=== PATIENT | female | born 1960 | race Hispanic/Latino ===

== ENCOUNTER 2020-12-14 10:26 | Emergency (ER) | payer OTHER, SELFPAY ==
[~2020-12-14] VITALS: Ht 152.4 cm; Wt 59.0 kg
[2020-12-14 10:27] VITALS: BP 157/81
[2020-12-14 11:25] LABS: BASOPHILS % (AUTO) 0.3 % (0.0-5.0); EOSINOPHILS % (AUTO) 3.1 % (0.0-8.0); HEMATOCRIT 32.7 % (36-48); LYMPHOCYTES % (AUTO) 24.8 % (21.0-51.0); MEAN CORPUSCULAR HEMOGLOBIN 28.5 pg (27.0-33.0); MEAN CORPUSCULAR HGB CONC 31.2 g/dL (32.0-36.0); MEAN CORPUSCULAR VOLUME 91.3 fL (79-99); MONOCYTES % (AUTO) 5.7 % (3.0-13.0); NEUTROPHILS % (AUTO) 65.7 % (40.0-77.0); PLATELET COUNT (AUTO) 455 K/uL (130-400); RED BLOOD CELL COUNT(AUTO) 3.58 MIL/uL (4.00-5.50); WHITE BLOOD COUNT (AUTO) 7.7 K/uL (4.8-10.8)
[2020-12-14 11:34] LABS: CREATININE 0.9 mg/dL (0.5-1.5); POTASSIUM 4.2 mmol/L (3.5-5.1)
[2020-12-14 11:42] LABS: B-TYPE NATRIURETIC PEPTIDE 80 pg/mL (0-100)
[2020-12-14 11:44] LABS: ALBUMIN 2.7 g/dL (3.5-5.0); BILIRUBIN,TOTAL 0.3 mg/dL (0.2-1.0); TOTAL PROTEIN, SERUM 7.7 g/dL (6.0-8.3)
[2020-12-14] MEDS ORDERED: SOLU-MEDROL 125MG VIAL IVP ONE (14:00)
[2020-12-14] MEDS ORDERED: PRED20TA3 PO (14:30)
[2020-12-14] MEDS ORDERED: KETOROLAC 30MG VIAL (30MG/ML) ONE (14:45)
== END 2020-12-14 16:05 | disposition home or self-care (01) ==
LOC: EDH 10:26
DX: R22.33 Localized swelling, mass and lump, upper limb, bilateral (principal); R22.43 Localized swelling, mass and lump, lower limb, bilateral; E78.00 Pure hypercholesterolemia, unspecified; I10 Essential (primary) hypertension; M19.90 Unspecified osteoarthritis, unspecified site
CPT/HCPCS: 36415; 71045; 80053; 82550; 83880; 84443; 84484; 85025; 93005; 96374; 96375; 99285; J1885; J2930

== ENCOUNTER 2023-09-19 15:22 | Emergency (ER) | payer OTHER, SELFPAY ==
[~2023-09-19] VITALS: Ht 152.4 cm; Wt 55.3 kg
[~2023-09-19 15:22] MED LIST: PRED20TA3 PO
[2023-09-19 15:40] VITALS: BP 125/67; PULSE 75; RESP 16
[2023-09-19 17:42] LABS: BASOPHILS # (AUTO) 0.03 K/uL (0.00-0.20); BASOPHILS % (AUTO) 0.4 % (0.0-5.0); EOSINOPHILS # (AUTO) 0.41 K/uL (0.00-0.70); HEMATOCRIT 33.5 % (36-48); IMMATURE GRANULOCYTE ABSOLUTE 0.02 K/uL (0-1); LYMPHOCYTES # (AUTO) 2.6 K/uL (1.0-4.8); LYMPHOCYTES % (AUTO) 31.8 % (21.0-51.0); MEAN CORPUSCULAR HEMOGLOBIN 29.4 pg (27.0-33.0); MEAN CORPUSCULAR HGB CONC 31.9 g/dL (32.0-36.0); MONOCYTES # (AUTO) 0.6 K/uL (0.1-1.0); NEUTROPHILS # (AUTO) 4.6 K/uL (1.8-7.7); NEUTROPHILS % (AUTO) 55.6 % (40.0-77.0); PLATELET COUNT (AUTO) 382 K/uL (130-400); RED BLOOD CELL COUNT(AUTO) 3.64 MIL/uL (4.00-5.50); RED CELL DISTRIBUTION WIDTH 13.2 % (11.0-15.5); WHITE BLOOD COUNT (AUTO) 8.3 K/uL (4.8-10.8)
[2023-09-19 17:54] LABS: CREATININE 0.9 mg/dL (0.5-1.0); POTASSIUM 4.3 mmol/L (3.5-5.1)
[2023-09-19] MEDS ORDERED: NAPR-1192 PO (18:15)
[2023-09-19] MEDS ORDERED: CYCL7.5T27 PO (18:15)
[2023-09-19] MEDS: ORPHENADRINE CITRATE 30 MG/ML ML IM STA (18:25)
[2023-09-19] MEDS: KETOROLAC 60 MG VIAL (30MG/ML) IM ONE (18:26)
== END 2023-09-19 18:50 | disposition home or self-care (01) ==
LOC: EDH 15:22
DX: G89.29 Other chronic pain (principal); M25.561 Pain in right knee; I10 Essential (primary) hypertension; E78.00 Pure hypercholesterolemia, unspecified; M19.90 Unspecified osteoarthritis, unspecified site; Z79.899 Other long term (current) drug therapy; Z98.890 Other specified postprocedural states
CPT/HCPCS: 99285; 93971; 80048; 85025; 36415; 73562; 96372 ×2; J1885; J2360

== ENCOUNTER 2024-06-07 12:57 | Emergency (ER) | payer BC, SELFPAY ==
[~2024-06-07] VITALS: Ht 152.4 cm; Wt 56.7 kg
[~2024-06-07 12:57] MED LIST changes: +CYCL7.5T27 PO; +NAPR-1192 PO
--- NOTE | 2024-06-07 13:07 | ERN ---
General Chief Complaint: Generalized Body Aches Stated Complaint: BODY ACHES History of Present Illness Initial Comments 63-year-old female, history of arthritis, reports flare-up of arthritis type pain. She reports that she has been dealing with arthritis and most of her joints on and off for the last few years. She occasionally takes pain medicine and steroids. She reports over the last few days her bilateral hands and bilateral knees have been bothering her. She denies any other systemic signs or symptoms such as fevers, vomiting, diarrhea, GI symptoms or other. She has tried [id number] Tylenol with minimal relief. There is some minimal swelling to her bilateral knees and hands, no erythema redness, neurovascularly intact. Ambulatory. Allergies: Coded Allergies: No Known Allergies (Unverified Allergy, Unknown, 12/14/20) Home Meds Active Scripts Cyclobenzaprine HCl (Cyclobenzaprine HCl) 7.5 Mg Tablet, 7.5 MG PO nightly for 7 Days, #7 TAB Prov:AMY HAWKINS MD 09/19/23 Naproxen (Naproxen) 375 Mg Tablet, 375 MG PO BID for 7 Days, #14 TAB Prov:AMY HAWKINS MD 09/19/23 Prednisone (Prednisone) 20 Mg Tablet, 1 TAB PO AD for 3 Days, #3 TAB 0 Refills Prov:MEREDITH BROWER MD 12/14/20 Past Medical History Past Medical History: Arthritis, High Cholesterol, Hypertension Past Surgical History: Family History Family History: Negative Social History Social History: ETOH, Negative Female( History) History: Not Applicable ROS Dictation CONSTITUTIONAL: No chills, no fever, no weakness, no diaphoresis, no malaise. HEAD/FACE: No signs of trauma. EENT: No eye pain, no blurred vision, no tearing, no double vision, no ear pain , no ear discharge, no nose pain, no nasal congestion, no throat pain, no throat swelling, no mouth pain. RESPIRATORY: No cough, no orthopnea, no SOB, no stridor, no wheezing. CARDIOVASCULAR: No chest pain, no edema, no palpitations, no syncope. GASTROINTESTINAL/ABDOMINAL: No abdominal pain, no constipation, no diarrhea, no nausea, no vomiting. GENITOURINARY: No abnormal discharge, no dysuria, no frequent urination, no hematuria. No complaints of pain in the genitals. MUSCULOSKELETAL: Bilateral knee and hand pain. INTEGUMENTARY: No change in color, no change in hair/nails, no dryness, no lesion, no lumps, no rash. NEUROLOGICAL/PSYCH: No anxiety, not depressed, no emotional problem, no headache, no numbness, no pre-existing deficit, no history of seizures, no tremors, no weakness. HEMATOLOGIC/LYMPHATIC: Not anemic, no history of blood clots, no apparent bleeding, no bruising, glands not swollen. All Systems Negative, Except as Noted. Physical Exam Physical Exam Dictation VITAL SIGNS: Reviewed. GENERAL APPEARANCE: Alert, oriented x3, no acute distress HEAD AND FACE: Non-traumatic. EYES: PERRL, pink conjunctivas, eyelid no trauma, anterior chamber clear. EARS: Pinnas intact and no signs of trauma or erythema. Ear canals clear and no discharge. TMs no erythema. NOSE: No discharge, no bleeding. OROPHARYNX: Mouth normal, teeth no caries, tongue pink. Pharynx clear, no erythema. Tonsils no exudates, no abscesses noted. Mucous membrane moist. NECK: Supple, non-tender, no thyromegaly, no masses, no JVD, no bruits. BREAST: Deferred. CHEST: No tenderness, no crepitus, no paradoxical movement, no retractions. LUNGS: Clear, well-ventilated, symmetric, no rales, no wheezing, no rhonchi, no stridor, good breath sounds bilaterally. HEART: Regular rate, regular rhythm, no murmur, no gallops. VASCULAR: No peripheral edema. ABDOMEN: Soft, positive bowel sounds, nondistended, no guarding, nontender, no rebound, no masses no hepatomegaly, no splenomegaly, no Ortiz's sign, no hernias. RECTAL: Deferred. GENITAL: Deferred. NEUROLOGICAL: Normal speech, gross motor function intact, gross sensory function intact. MUSCULOSKELETAL: Neck nontender, full range of motion, back nontender, full range of motion. Bilateral knee swelling. EXTREMITIES: Nontender, full range of motion. SKIN: Color pink, dry, no turgor, no rash, no lacerations, no abrasions, no contusions. LYMPHATICS: Deferred. MDM CC: Hand and knee pain likely arthritis Historian: Patient Comorbidities: Arthritis Limitations by social determinants of health: Uninsured Differential diagnosis: Arthritis flare-up Vital signs are stable Clinical exam shows some mild swelling in bilateral knees and hands. Very low suspicion for DVT, vascular compromise, or systemic illness. Bilateral knee x-ray (independently interpreted by me ): No bony abnormalities or major fractures. Patient received IM color at all and Solu-Medrol in the ER. We will DC with NSAID (meloxicam) and a short course of prednisone. We will recommend PCP follow up. Patient agrees with the plan. ED Course Orders Procedure Category Date Status Time Knee 3vws Lt RAD 06/07/24 Taken 13:04 Knee 3vws Rt RAD 06/07/24 Logged 13:04 Ketorolac PHA 06/07/24 Complete Tromethamine 15mg/Ml 13:30 Methylprednisolone PHA 06/07/24 Complete Succ 40mg (Solu-Medro 13:30 Current Medications Medications (Trade) Dose Ordered Sig/Lexus Route PRN Reason Start Time Stop Time Status Last Admin Dose Admin Ketorolac Tromethamine (toRADol) 15 mg ONCE ONCE IM 06/07/24 13:30 06/07/24 13:31 DC Methylprednisolone Sodium Succinate (Solu-medROL 40MG) 40 mg ONCE ONCE IM 06/07/24 13:30 06/07/24 13:31 DC Vital Signs Date Time Temp Pulse Resp B/P (MAP) Pulse Ox O2 Delivery O2 Flow Rate FiO2 06/07/24 13:01 98.2 82 18 108/60 99 Room Air DX & DISP Disposition: Discharge Departure Impression: Primary Impression: Arthritis of knee Condition: Stable Scripts Prednisone (Prednisone) 20 Mg Tablet 1 TAB PO BID for 5 Days, #10 TAB 0 Refills Prov: GERALD LEONE DO 06/07/24 Meloxicam (Meloxicam) 15 Mg Tablet 15 MG PO DAILY PRN for PAIN for 10 Days, #10 TAB Prov: GERALD LEONE DO 06/07/24 Additional Instructions: Your symptoms are consistent with arthritis. The bilateral knee x-rays do not show any bony abnormalities. You received intramuscular Toradol and Solu-Medrol here in the ER. I have prescribed meloxicam, which is an anti-inflammatory pain medicine. Take this once per day for the next week or so. I have also prescribed prednisone which is an anti-inflammatory steroid. Take this twice per day as prescribed. I recommend you also take 1000 mg of Tylenol 4 times a day (two extra-strength tabs at a time). This medication is [id number]. You can use ice to your knees as needed. Use an Jevon wrap as needed. Please follow up with the primary doctor for re-evaluation. Referrals: BRENDA BANSAL MD (PCP) GERALD LEONE DO Jun 07, 2024 13:07
[2024-06-07] MEDS ORDERED: PRED20TA3 PO (13:34)
[2024-06-07] MEDS ORDERED: MELO-108 PO (13:34)
[2024-06-07] MEDS: Solu-medROL 40MG VIAL IM ONE (13:38)
[2024-06-07] MEDS: ketOROlac 15MG/ML VIAL (15MG/ML) IM ONE (13:39)
[2024-06-07 13:47] VITALS: BP 108/60; PULSE 80; RESP 16; TEMP 98.3; O2SAT 98
--- NOTE | 2024-06-07 13:51 | HMCIMG ---
KNEE 3VWS RT HISTORY: Pain COMPARISON: None TECHNIQUE: 3 images of left knee were obtained. FINDINGS: There is no acute displaced fracture or dislocation. Degenerative changes are seen. IMPRESSION: 1. Findings as described above.
--- NOTE | 2024-06-07 13:51 | HMCIMG ---
KNEE 3VWS LT HISTORY: Pain COMPARISON: None TECHNIQUE: 3 images of left knee were obtained. FINDINGS: There is no acute displaced fracture or dislocation. Degenerative changes are seen. IMPRESSION: 1. Findings as described above.
== END 2024-06-07 14:00 | disposition home or self-care (01) ==
LOC: EDH 12:57
DX: M17.0 Bilateral primary osteoarthritis of knee (principal); E78.00 Pure hypercholesterolemia, unspecified; I10 Essential (primary) hypertension; Z79.899 Other long term (current) drug therapy; Z98.890 Other specified postprocedural states
CPT/HCPCS: 99284; 73562 ×2; 96372 ×2; J1885; J2919

== ENCOUNTER 2024-08-26 11:43 | Emergency (ER) | payer BC, OTHER ==
[~2024-08-26] VITALS: Ht 152.4 cm; Wt 55.3 kg
[~2024-08-26 11:43] MED LIST changes: +MELO-108 PO; +OMEP40CA21 PO
[2024-08-26 12:11] LABS: BASOPHILS # (AUTO) 0.03 K/uL (0.00-0.20); BASOPHILS % (AUTO) 0.3 % (0.0-5.0); EOSINOPHILS # (AUTO) 0.21 K/uL (0.00-0.70); EOSINOPHILS % (AUTO) 1.8 % (0.0-8.0); HEMATOCRIT 30.2 % (36-48); IMMATURE GRANULOCYTE ABSOLUTE 0.03 K/uL (0-1); LYMPHOCYTES # (AUTO) 2.9 K/uL (1.0-4.8); LYMPHOCYTES % (AUTO) 24.3 % (21.0-51.0); MEAN CORPUSCULAR HEMOGLOBIN 26.1 pg (27.0-33.0); MEAN CORPUSCULAR HGB CONC 30.8 g/dL (32.0-36.0); MEAN CORPUSCULAR VOLUME 84.6 fL (79-99); MONOCYTES # (AUTO) 0.7 K/uL (0.1-1.0); MONOCYTES % (AUTO) 5.6 % (3.0-13.0); NEUTROPHILS # (AUTO) 8.1 K/uL (1.8-7.7); NEUTROPHILS % (AUTO) 67.7 % (40.0-77.0); PLATELET COUNT (AUTO) 519 K/uL (130-400); RED BLOOD CELL COUNT(AUTO) 3.57 MIL/uL (4.00-5.50); RED CELL DISTRIBUTION WIDTH 14.1 % (11.0-15.5)
[2024-08-26 12:18] LABS: POTASSIUM 4.7 mmol/L (3.5-5.1)
[2024-08-26 12:26] LABS: MAGNESIUM 1.9 mg/dL (1.80-2.40)
--- NOTE | 2024-08-26 12:30 | EKG ---
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
--- NOTE | 2024-08-26 12:56 | ERN ---
General Chief Complaint: LOWER EXTREMITY EDEMA Stated Complaint: UPPER AND LOWER EXTREMITY SWELLING Time Seen by MD: 11:51 History of Present Illness Initial Comments 64-year-old female who presents for lower leg swelling bilateral hand swelling. Patient has a history of rheumatoid arthritis. She gets occasional flare-ups in her hands shoulders and upper joints. She also occasionally swells in her legs. She reports that she has had increased swelling in her lower legs bilaterally for the last two months. Has been increasing in severity. She reports that it feels like it is so bad now that she is having a hard time walk and it is uncomfortable. She denies any chest pain or shortness of breath. Denies any PND. Denies any chest palpitations. She reports that her liver and kidney functions are normal. Allergies: Coded Allergies: No Known Allergies (Unverified Allergy, Unknown, 12/14/20) Home Meds Active Scripts Furosemide (Lasix 20Mg Tab) 20 Mg Tablet, 1 TAB PO DAILY for 30 Days, #30 TAB 0 Refills Prov:GERALD LEONE DO 08/26/24 Meloxicam (Meloxicam) 15 Mg Tablet, 15 MG PO DAILY PRN for PAIN for 30 Days, #30 TAB Prov:GERALD LEONE DO 08/26/24 Prednisone (Prednisone) 20 Mg Tablet, 1 TAB PO AD for 6 Days, #14 TAB 0 Refills TAKE 1 TAB BY MOUTH THREE TIMES PER DAY X3 DAYS, THEN TAKE 1 TAB BY MOUTH TWICE A DAY X2 DAYS, THEN TAKE 1 TAB BY MOUTH ONCE A DAY X1 DAY. Prov:NURY CADENA NP 07/16/24 Omeprazole (Omeprazole) 40 Mg Capsule.dr, 1 CAP PO DAILY for 30 Days, #30 CAP 0 Refills Prov:NURY CADENA NP 07/16/24 Prednisone (Prednisone) 20 Mg Tablet, 1 TAB PO BID for 5 Days, #10 TAB 0 Refills Prov:GERALD LEONE DO 06/07/24 Meloxicam (Meloxicam) 15 Mg Tablet, 15 MG PO DAILY PRN for PAIN for 10 Days, #10 TAB Prov:GERADL LEONE DO 06/07/24 Cyclobenzaprine HCl (Cyclobenzaprine HCl) 7.5 Mg Tablet, 7.5 MG PO nightly for 7 Days, #7 TAB Prov:AMY HAWKINS MD 09/19/23 Naproxen (Naproxen) 375 Mg Tablet, 375 MG PO BID for 7 Days, #14 TAB Prov:AMY HAWKINS MD 09/19/23 Prednisone (Prednisone) 20 Mg Tablet, 1 TAB PO AD for 3 Days, #3 TAB 0 Refills Prov:MEREDITH BROWER MD 12/14/20 Past Medical History Past Medical History: Anemia, Arthritis, High Cholesterol, Hypertension Past Surgical History: Family History Family History: Negative Social History Social History: ETOH, Negative Female( History) History: Not Applicable ROS Dictation CONSTITUTIONAL: No chills, no fever, no weakness, no diaphoresis, no malaise. HEAD/FACE: No signs of trauma. EENT: No eye pain, no blurred vision, no tearing, no double vision, no ear pain, no ear discharge, no nose pain, no nasal congestion, no throat pain, no throat swelling, no mouth pain. RESPIRATORY: No cough, no orthopnea, no SOB, no stridor, no wheezing. CARDIOVASCULAR: No chest pain, no edema, no palpitations, no syncope. GASTROINTESTINAL/ABDOMINAL: No abdominal pain, no constipation, no diarrhea, no nausea, no vomiting. GENITOURINARY: No abnormal discharge, no dysuria, no frequent urination, no hematuria. No complaints of pain in the genitals. MUSCULOSKELETAL: Bilateral extremity swelling INTEGUMENTARY: No change in color, no change in hair/nails, no dryness, no les ion, no lumps, no rash. NEUROLOGICAL/PSYCH: No anxiety, not depressed, no emotional problem, no headache, no numbness, no pre-existing deficit, no history of seizures, no tremors, no weakness. HEMATOLOGIC/LYMPHATIC: Not anemic, no history of blood clots, no apparent bleeding, no bruising, glands not swollen. All Systems Negative, Except as Noted. Physical Exam Physical Exam Dictation VITAL SIGNS: Reviewed. GENERAL APPEARANCE: Alert, oriented x3, no acute distress, obese. HEAD AND FACE: Non-traumatic. EYES: PERRL, pink conjunctivas, eyelid no trauma, anterior chamber clear. EARS: Pinnas intact and no signs of trauma or erythema. Ear canals clear and no discharge. TMs no erythema. NOSE: No discharge, no bleeding. OROPHARYNX: Mouth normal, teeth no caries, tongue pink. Pharynx clear, no erythema. Tonsils no exudates, no abscesses noted. Mucous membrane moist. NECK: Supple, non-tender, no thyromegaly, no masses, no JVD, no bruits. BREAST: Deferred. CHEST: No tenderness, no crepitus, no paradoxical movement, no retractions. LUNGS: Clear, well-ventilated, symmetric, no rales, no wheezing, no rhonchi, no stridor, good breath sounds bilaterally. HEART: Regular rate, regular rhythm, no murmur, no gallops. VASCULAR: No peripheral edema. ABDOMEN: Soft, positive bowel sounds, nondistended, no guarding, nontender, no rebound, no masses no hepatomegaly, no splenomegaly, no Ortiz's sign, no hernias. RECTAL: Deferred. GENITAL: Deferred. NEUROLOGICAL: Normal speech, gross motor function intact, gross sensory function intact. MUSCULOSKELETAL: Bilateral lower leg 2+ pitting edema. Lung sounds are clear. EXTREMITIES: Nontender, full range of motion. SKIN: Color pink, dry, no turgor, no rash, no lacerations, no abrasions, no contusions. LYMPHATICS: Deferred. Results Laboratory and Microbiology Lab and Micro Result Laboratory Tests Test 08/26/24 12:03 08/26/24 12:58 White Blood Count 12.0 K/uL (4.8-10.8) H Red Blood Count 3.57 MIL/uL (4.00-5.50) L Hemoglobin 9.3 g/dL (12.0-16.0) L Hematocrit 30.2 % (36-48) L Mean Corpuscular Volume 84.6 fL (79-99) Mean Corpuscular Hemoglobin 26.1 pg (27.0-33.0) L Mean Corpuscular Hemoglobin Concent 30.8 g/dL (32.0-36.0) L Red Cell Distribution Width 14.1 % (11.0-15.5) Platelet Count 519 K/uL (130-400) H Mean Platelet Volume 9.4 fL (7.5-10.5) Immature Granulocyte % (Auto) 0.3 % (0-1) Neutrophils (%) (Auto) 67.7 % (40.0-77.0) Lymphocytes (%) (Auto) 24.3 % (21.0-51.0) Monocytes (%) (Auto) 5.6 % (3.0-13.0) Eosinophils (%) (Auto) 1.8 % (0.0-8.0) Basophils (%) (Auto) 0.3 % (0.0-5.0) Neutrophils # (Auto) 8.1 K/uL (1.8-7.7) H Lymphocytes # (Auto) 2.9 K/uL (1.0-4.8) Monocytes # (Auto) 0.7 K/uL (0.1-1.0) Eosinophils # (Auto) 0.21 K/uL (0.00-0.70) Basophils # (Auto) 0.03 K/uL (0.00-0.20) Absolute Immature Granulocyte (auto 0.03 K/uL (0-1) Nucleated Red Blood Cells 0.0 % (0.0-0.19) Red Blood Cell Morphology See comments Sodium Level 142 mmol/L (136-145) Potassium Level 4.7 mmol/L (3.5-5.1) Chloride Level 106 mmol/L (101-111) Carbon Dioxide Level 27 mmol/L (21-32) Blood Urea Nitrogen 21 mg/dL (7-18) H Creatinine 1.0 mg/dL (0.5-1.0) Glomerular Filtration Rate Calc 64 mL/min (>90) Random Glucose 97 mg/dL (70-105) Total Calcium 9.1 mg/dL (8.5-10.1) Magnesium Level 1.90 mg/dL (1.80-2.40) Total Creatine Kinase 56 U/L (21-232) # Troponin I High Sensitivity 4.2 ng/L (4-50) B-Type Natriuretic Peptide 64 pg/mL (0-100) Urine Color YELLOW (YELLOW) Urine Appearance CLEAR (CLEAR) Urine pH 5.0 (5.0-8.0) Urine Specific Taft 1.036 (1.001-1.031) Urine Protein 30 mg/dL (NEGATIVE) H Urine Glucose (UA) NEGATIVE mg/dL (NEGATIVE) Urine Ketones 5 mg/dL (NEGATIVE) H Urine Occult Blood NEGATIVE (NEGATIVE) Urine Nitrate NEGATIVE (NEGATIVE) Urine Bilirubin MODERATE mg/dL (NEGATIVE) H Urine Urobilinogen 1.0 mg/dL (0.2-1.0) Urine Leukocyte Esterase NEGATIVE Joo/uL Urine RBC 0-1 /HPF (0-1) Urine WBC 2-5 /HPF (0-1) H Urine Squamous Epithelial Cells 2-5 /HPF (0-2) Urine Bacteria Moderate /HPF (None Seen) H MDM CC: Pedal edema and swelling hand swelling Historian: Patient Comorbidities: Rheumatoid arthritis Limitations by social determinants of health: None Differential diagnosis: Pedal edema, CHF, kidney disease, lung disease, rhe umatoid arthritis, other. Vital signs: Stable, remained stable here in the ER EKG: Sinus rhythm, rate 73, normal axis, good R-wave progression, intervals are stable no STEMI. Independently interpreted by me CXR (independently ordered and interpreted by me): No cardiomegaly focal infiltrates or pleural effusions. Labs show leukocytosis 12 K, no shift, normocytic anemia hemoglobin 9.3. Chemistry panel is unremarkable. Troponin is normal. Urinalysis shows 30 protein high specific gravity otherwise unremarkable. Treatment in ED: toradol Symptoms most consistent with a edema, there is no signs of heart failure, no signs of kidney disease or liver disease. It may also be related to her rheumatoid arthritis. For the rheumatoid I will treat her with some meloxicam prescription. She does report she is working on getting outpatient follow up but currently does not have a primary care doctor. We will give her some Lasix to start, but I did highly recommend she return to the emergency department or follows up with the primary doctor to ensure that she her kidney function is stable her electrolytes are stable and that her swelling improves. ED Course Orders Procedure Category Date Status Time Cardiac Panel LAB 08/26/24 Complete 11:53 Cbc With Differential LAB 08/26/24 Complete 11:53 Basic Metabolic Panel LAB 08/26/24 Complete 11:53 B-Type Natriuretic LAB 08/26/24 Complete Peptide 11:53 Magnesium LAB 08/26/24 Complete 11:53 Urinalysis Profile LAB 08/26/24 Complete 11:53 12 Lead Ekg Tracing- EKG 08/26/24 Complete Technical 11:53 Chest 1vw RAD 08/26/24 Resulted 11:53 Ketorolac PHA 08/26/24 Complete Tromethamine 15mg/Ml 13:00 Culture Urine RONNY 08/26/24 In Process 13:41 Current Medications Medications (Trade) Dose Ordered Sig/Lexus Route PRN Reason Start Time Stop Time Status Last Admin Dose Admin Ketorolac Tromethamine (toRADol) 15 mg ONCE ONCE IV 08/26/24 13:00 08/26/24 13:01 DC 08/26/24 13:05 Vital Signs Date Time Temp Pulse Resp B/P (MAP) Pulse Ox O2 Delivery O2 Flow Rate FiO2 08/26/24 15:56 98.1 61 18 134/61 97 Room Air* 0 21 08/26/24 13:58 62 18 131/57 100 Room Air* 0 21 08/26/24 12:04 98.4 72 18 123/57 100 Room Air* 0 21 08/26/24 11:46 98.6 67 20 135/62 98 Room Air DX & DISP Disposition: Discharge Departure Impression: Primary Impression: Flare of rheumatoid arthritis Additional Impression: Pedal edema Condition: Stable Scripts Furosemide (Lasix 20Mg Tab) 20 Mg Tablet 1 TAB PO DAILY for 30 Days, #30 TAB 0 Refills Prov: GERALD LEONE DO 08/26/24 Meloxicam (Meloxicam) 15 Mg Tablet 15 MG PO DAILY PRN for PAIN for 30 Days, #30 TAB Prov: GERALD LEONE DO 08/26/24 Additional Instructions: Your symptoms are consistent with a rheumatoid arthritis flare-up with pulmonary edema, or leg swelling. Your lab work (heart function, kidney function, liver function) is unremarkable. I have prescribed Lasix, which is a diuretic. You can take this once or twice per day. This will increase your urination. You can do this to help remove fluid off your body and reduce the swelling. I do not recommend that you take this for long-term without follow up with the primary doctor. I have prescribed meloxicam, which is a nonsteroidal anti-inflammatory medicine that may help with your rheumatoid arthritis. Take as prescribed. Please follow up with the primary doctor. Referrals: VIKTOR HANKS MD (PCP) GERALD LEONE DO August 26, 2024 12:56
[2024-08-26] MEDS: ketOROlac 15MG/ML VIAL (15MG/ML) IV ONE (13:05)
[2024-08-26 13:08] LABS: APPEARANCE,URINE CLEAR (CLEAR); BILIRUBIN,URINE MODERATE mg/dL (NEGATIVE); COLOR,URINE YELLOW (YELLOW); GLUCOSE, URINE (UA) NEGATIVE (NEGATIVE); KETONES,URINE 5 mg/dL (NEGATIVE); LEUKOCYTE ESTERASE ,URINE NEGATIVE Leu/uL (NEGATIVE); NITRATE,URINE NEGATIVE (NEGATIVE); OCCULT BLOOD,URINE NEGATIVE (NEGATIVE); PROTEIN,URINE 30 mg/dL (NEGATIVE)
[2024-08-26 13:12] LABS: ADD UA MICROSCOPIC YES
--- NOTE | 2024-08-26 13:25 | HMCIMG ---
PORTABLE CHEST RADIOGRAPH INDICATION: chest pain COMPARISON: 12/14/2020 FINDINGS: Heart size is normal. The pulmonary vascularity and madhavi appear normal. No abnormal pulmonary parenchymal opacity or consolidation identified. No significant pleural effusion noted. No pneumothorax detected. IMPRESSION: No radiographic evidence for any acute cardiopulmonary process.
[2024-08-26 13:40] LABS: BACTERIA,URINE Moderate /HPF (None Seen)
[2024-08-26 13:41] LABS: RBC,URINE 0-1 /HPF (0-1)
[2024-08-26 14:37] LABS: B-TYPE NATRIURETIC PEPTIDE 64 pg/mL (0-100)
[2024-08-26] MEDS ORDERED: FURO20TA6 PO (14:45)
[2024-08-26 15:56] VITALS: BP 134/61; PULSE 61; RESP 18; TEMP 98.1; O2SAT 97
== END 2024-08-26 16:11 | disposition home or self-care (01) ==
LOC: EDH 11:43
DX: M06.9 Rheumatoid arthritis, unspecified (principal); R60.0 Localized edema; E78.00 Pure hypercholesterolemia, unspecified; I10 Essential (primary) hypertension; Z79.52 Long term (current) use of systemic steroids; Z79.899 Other long term (current) drug therapy
CPT/HCPCS: 99285; 96374; 71045; 82550; 83735; 84484; 80048; 83880; 85025; 87086; 81001; 36415; 93005; J1885

== ENCOUNTER 2024-09-24 11:47 | Emergency (ER) | payer OTHER ==
[~2024-09-24] VITALS: Ht 152.4 cm; Wt 54.4 kg
[~2024-09-24 11:47] MED LIST changes: +FURO20TA6 PO
--- NOTE | 2024-09-24 11:56 | ERN ---
ED Note History of Present Illness Stated Complaint: PAIN IN ALL BODY,SWOLLEN LEGS Chief Complaint: Lower Extremity Pain/Injury Time Seen by MD: 11:49 Dictation: PATIENT IS A 64-YEAR-OLD FEMALE COMING IN TODAY WITH COMPLAINTS OF SWELLING TO HER BILATERAL LOWER EXTREMITIES ONSET SHE HAS HAD FOR SEVERAL WEEKS. SHE HAS NO SOB NO CHEST PAIN NO BACK PAIN. DENIES ANY HISTORY OF CHF. SHE WAS SEEN HERE I August FOR THE SAME COMPLAINT AND WAS DIAGNOSED WITH A RHEUMATOID ARTHRITIS FLARE AND PEDAL EDEMA. STATES SHE SAW HER PRIMARY CARE DOCTOR WHO REFERRED HER TO A SPECIALIST FOR HER ARTHRITIS, SHE DOES NOT RECALL WHAT HE TOLD HER BUT HE GAVE HER SOME PILLS TO TAKE BUT Allergies: Coded Allergies: No Known Allergies (Unverified Allergy, Unknown, 12/14/20) Home Meds Active Scripts Furosemide (Lasix 20Mg Tab) 20 Mg Tablet, 1 TAB PO DAILY for 30 Days, #30 TAB 0 Refills Prov:GEARLD LEONE DO 08/26/24 Meloxicam (Meloxicam) 15 Mg Tablet, 15 MG PO DAILY PRN for PAIN for 30 Days, #30 TAB Prov:GERALD LEONE DO 08/26/24 Prednisone (Prednisone) 20 Mg Tablet, 1 TAB PO AD for 6 Days, #14 TAB 0 Refills TAKE 1 TAB BY MOUTH THREE TIMES PER DAY X3 DAYS, THEN TAKE 1 TAB BY MOUTH TWICE A DAY X2 DAYS, THEN TAKE 1 TAB BY MOUTH ONCE A DAY X1 DAY. Prov:NURY CADENA NP 07/16/24 Omeprazole (Omeprazole) 40 Mg Capsule.dr, 1 CAP PO DAILY for 30 Days, #30 CAP 0 Refills Prov:NURY CADENA NP 07/16/24 Prednisone (Prednisone) 20 Mg Tablet, 1 TAB PO BID for 5 Days, #10 TAB 0 Refills Prov:GERALD LEONE DO 06/07/24 Meloxicam (Meloxicam) 15 Mg Tablet, 15 MG PO DAILY PRN for PAIN for 10 Days, #10 TAB Prov:GERALD LEONE DO 06/07/24 Cyclobenzaprine HCl (Cyclobenzaprine HCl) 7.5 Mg Tablet, 7.5 MG PO nightly for 7 Days, #7 TAB Prov:AMY HAWKINS MD 09/19/23 Naproxen (Naproxen) 375 Mg Tablet, 375 MG PO BID for 7 Days, #14 TAB Prov:AMY HAWKINS MD 09/19/23 Prednisone (Prednisone) 20 Mg Tablet, 1 TAB PO AD for 3 Days, #3 TAB 0 Refills Prov:MEREDITH BROWER MD 12/14/20 Past Medical History Past Medical History: Anemia, Arthritis, High Cholesterol, Hypertension Surgical History: Family History: Negative Social History: ETOH, Negative History: Not Applicable RN Note Reviewed/Agreed w/PFSH: Yes Review of System Dictation CONSTITUTIONAL: NEGATIVE EXCEPT FOR HPI HEAD/FACE: NEGATIVE EXCEPT FOR HPI EENT: NEGATIVE EXCEPT FOR HPI RESPIRATORY: NEGATIVE EXCEPT FOR HPI PEDAL EDEMA GASTROINTESTINAL/ABDOMINAL: NEGATIVE EXCEPT FOR HPI GENITOURINARY: NEGATIVE EXCEPT FOR HPI MUSCULOSKELETAL: NEGATIVE EXCEPT FOR HPI GENERALIZED PAIN TO MULTIPLE JOINTS BILATERALLY INTEGUMENTARY: NEGATIVE EXCEPT FOR HPI NEUROLOGICAL/PSYCH: NEGATIVE EXCEPT FOR HPI HEMATOLOGIC/LYMPHATIC: NEGATIVE EXCEPT FOR HPI ALL SYSTEMS NEGATIVE, EXCEPT NOTED ABOVE. 13 POINT REVIEW OF SYSTEMS ASSESSED AND ALL NEGATIVE EXCEPT FOR ABOVE. Initial Vital Sign VS Vital Signs Date Time Temp Pulse Resp B/P (MAP) Pulse Ox O2 Delivery O2 Flow Rate FiO2 09/24/24 11:51 98.4 74 16 122/63 97 Room Air 0 09/24/24 12:13 21 Physical Exam Dictation VITAL SIGNS REVIEWED GENERAL APPEARANCE: ALERT, ORIENTED X 3, MODERATE ACUTE DISTRESS, WELL DEVELOPED, NOURISHED. PATIENT ANXIOUS HEAD AND FACE: NON-TRAUMATIC. EYES: PERRL, PINK CONJUNCTIVAS, EYELID NO TRAUMA, ANTERIOR CHAMBER WITH ARCUS SENILIS. EARS: PINNAS INTACT AND NO SIGNS OF TRAUMA OR ERYTHEMA EAR CANALS CLEAR AND NO DISCHARGE TM NO ERYTHEMA NOSE: NO DISCHARGE, NO BLEEDING. OROPHARYNX: MOUTH NORMAL, TONGUE PINK, PHARYNX CLEAR,NO ERYTHEMA, TONSILS NO EXUDATES, NO ABSCESSES NOTED, MUCOUS MEMBRANE MOIST NECK: SUPPLE, NON-TENDER, NO THYROMEGALY, NO MASSES, NO JVD, NO BRUITS BREAST:DEFERRED CHEST:NO TENDERNESS, NO CREPITUS, NO PARADOXICAL MOVEMENT, NO RETRACTIONS LUNGS:CLEAR, WELL-VENTILATED, SYMMETRIC, NO RALES, NO WHEEZING, NO RHONCHI, NO STRIDOR, GOOD BREATH SOUNDS BILATERALLY HEART: REGULAR RATE, REGULAR RHYTHM, NO MURMUR, NO GALLOPS VASCULAR: 2+ PERIPHERAL EDEMA BILATERAL LOWER EXTREMITIES TO KNEES., ABDOMEN: SOFT, POSITIVE BOWEL SOUNDS, NONDISTENDED, NO GUARDING, NONTENDER, NO REBOUND, NO MASSES NO HEPATOMEGALY, NO SPLENOMEGALY, NO WIGGINS'S SIGN, NO HERNIAS. RECTAL: DEFERRED GENITAL: DEFERRED NEUROLOGICAL: NORMAL SPEECH, MOTOR FUNCTION INTACT, SENSORY FUNCTION INTACT MUSCULOSKELETAL: NECK NONTENDER, FULL RANGE OF MOTION, BACK NONTENDER, FULL RANGE OF MOTION, EXTREMITIES: NONTENDER, FULL RANGE OF MOTION SKIN: COLOR PINK, DRY, NO TURGOR, NO RASH, NO LACERATIONS, NO ABRASIONS, NO CONTUSIONS. LYMPHATIC: DEFERRED Results (Laboratory/Radiology) Laboratory/Radiology Laboratory Tests Test 09/24/24 12:02 White Blood Count 9.1 K/uL (4.8-10.8) Red Blood Count 3.78 MIL/uL (4.00-5.50) L Hemoglobin 9.4 g/dL (12.0-16.0) L Hematocrit 30.7 % (36-48) L Mean Corpuscular Volume 81.2 fL (79-99) Mean Corpuscular Hemoglobin 24.9 pg (27.0-33.0) L Mean Corpuscular Hemoglobin Concent 30.6 g/dL (32.0-36.0) L Red Cell Distribution Width 15.0 % (11.0-15.5) Platelet Count 520 K/uL (130-400) H Mean Platelet Volume 9.1 fL (7.5-10.5) Immature Granulocyte % (Auto) 0.2 % (0-1) Neutrophils (%) (Auto) 63.9 % (40.0-77.0) Lymphocytes (%) (Auto) 27.6 % (21.0-51.0) Monocytes (%) (Auto) 5.5 % (3.0-13.0) Eosinophils (%) (Auto) 2.4 % (0.0-8.0) Basophils (%) (Auto) 0.4 % (0.0-5.0) Neutrophils # (Auto) 5.8 K/uL (1.8-7.7) Lymphocytes # (Auto) 2.5 K/uL (1.0-4.8) Monocytes # (Auto) 0.5 K/uL (0.1-1.0) Eosinophils # (Auto) 0.22 K/uL (0.00-0.70) Basophils # (Auto) 0.04 K/uL (0.00-0.20) Absolute Immature Granulocyte (auto 0.02 K/uL (0-1) Nucleated Red Blood Cells 0.0 % (0.0-0.19) Red Blood Cell Morphology See comments Sodium Level 140 mmol/L (136-145) Potassium Level 4.3 mmol/L (3.5-5.1) Chloride Level 102 mmol/L (101-111) Carbon Dioxide Level 29 mmol/L (21-32) Blood Urea Nitrogen 26 mg/dL (7-18) H Creatinine 1.0 mg/dL (0.5-1.0) Glomerular Filtration Rate Calc 64 mL/min (>90) Random Glucose 97 mg/dL (70-105) Total Calcium 9.1 mg/dL (8.5-10.1) B-Type Natriuretic Peptide 120 pg/mL (0-100) H Labs Reviewed?: Yes EKG Comment: NORMAL SINUS RHYTHM/HEART RATE 73/AXIS NORMAL/NO ECTOPY NO TROPONIN DRAWN. LOOKING FOR ARRHYTHMIAS ONLY ED Course ED Course Orders Procedure Category Date Status Time Cbc With Differential LAB 09/24/24 Complete 11:52 B-Type Natriuretic LAB 09/24/24 Complete Peptide 11:52 12 Lead Ekg Tracing- EKG 09/24/24 Complete Technical 11:52 Basic Metabolic Panel LAB 09/24/24 Complete 11:52 Vital Signs Date Time Temp Pulse Resp B/P (MAP) Pulse Ox O2 Delivery O2 Flow Rate FiO2 09/24/24 12:13 98.4 70 16 120/60 98 Room Air* 0 21 09/24/24 11:51 98.4 74 16 122/63 97 Room Air 0 1320/PATIENT REFERRED BACK TO HIS PRIMARY CARE DOCTOR. SHE DOES NOT HAVE ACUTE CHF, HAS A CHRONIC ANEMIA AND DEPENDENT EDEMA. WHO HAS RHEUMATOID ARTHRITIS AND TOLD TO SEE HER DOCTOR FOR MANAGEMENT OF PAIN Medical Decision Making MDM MDM: DIFFERENTIAL DIAGNOSIS: CHF/HYPOPROTEINEMIA/ARRHYTHMIA/ELECTROLYTE IMBALANCE/ RATIONALE: TESTS CONSIDERED AND ORDERED SECONDARY TO SHARED DECISION MAKING INCLUDE: PREVIOUS OUTSIDE RECORDS REVIEWED: OLD ER VISITS. RISK OF COMPLICATION AND/OR MORBIDITY OR MORTALITY OF PATIENT MANAGEMENT: NONE MEDICATIONS-PER MEDICATION RECONCILIATION EKG/LABS NEED FOR HOSPITALIZATION: PATIENT DOES NOT MEET CRITERIA FOR HOSPITALIZATION. NO NEED FOR EMERGENCY MAJOR/MINOR SURGERY: NO THERE ARE NO SOCIAL CONCERNS WITH THIS PATIENT. PRESCRIPTION DRUG MANAGEMENT LASIX 40 Q.DAY FOR FIVE DAYS TOLD TO SEE YOUR PRIMARY CARE DOCTOR PRESCRIPTIONS WILL INCLUDE SYMPTOMATIC CARE PATIENT'S PRIOR EXTERNAL MEDICAL RECORDS FROM OTHER ER VISITS WERE REVIEWED BY ME INDICATED. PRIOR TESTING AND RESULTS FROM PREVIOUS VISITS WERE REVIEWED. PRIOR TESTS WERE TAKEN INTO ACCOUNT WITH MEDICAL DECISION MAKING AND RESOURCE UTILIZATION, INDEPENDENT HISTORIAN/HISTORIANS WERE USED TO OBTAIN COMPLETE MEDICAL HISTORY. I INDEPENDENTLY INTERPRETED THE TEST THAT WERE PERFORMED, RESULTS WERE REVIEWED BY ME AND CONSIDERED FINDINGS ON RADIOLOGY IF ORDERED. MEDICAL MANAGEMENT AND EXAMINATION INTERPRETATION DISCUSSIONS WERE HAD BY ME WITH OTHER QUALIFIED HEALTHCARE PROFESSIONALS INDICATED FOR THE PATIENT'S CARE. DX & DISP Disposition: Discharge Departure Impression: Primary Impression: Dependent edema Additional Impressions: Chronic anemia, Rheumatoid arthritis Condition: Stable Scripts Prednisone (Prednisone) 20 Mg Tablet 1 TAB PO AD for 6 Days, #14 TAB 0 Refills TAKE 1 TAB BY MOUTH THREE TIMES PER DAY X3 DAYS, THEN TAKE 1 TAB BY MOUTH TWICE A DAY X2 DAYS, THEN TAKE 1 TAB BY MOUTH ONCE A DAY X1 DAY. Prov: NURY CADENA NP 09/24/24 Furosemide (Lasix 40Mg Tab) 40 Mg Tablet 1 TAB PO DAILY for 5 Days, #5 TAB 0 Refills Prov: NURY CADENA NP 09/24/24 Additional Instructions: FOLLOW-UP WITH PRIMARY CARE PROVIDER IN 1 TO 2 DAYS. TAKE MEDICATIONS DIRECT ED HERE IN THE EMERGENCY ROOM. OKAY TO CONTINUE HOME MEDICATIONS UNLESS OTHERWISE DISCUSSED DURING YOUR VISIT IN THE EMERGENCY ROOM TODAY. RETURN TO YOUR NEAREST EMERGENCY ROOM IF SYMPTOMS WORSEN OR IF THERE IS NO IMPROVEMENT. CALL 911 IF YOU NEED IMMEDIATE ASSISTANCE. TAKE TYLENOL OR MOTRIN [id number] NEEDED AND IF NO CONTRAINDICATIONS ARE PRESENT. INCREASE ORAL HYDRATION. A WOUND CULTURE OR URINE CULTURE WAS ORDERED HERE IN THE EMERGENCY ROOM DEPARTMENT PLEASE FOLLOW-UP WITH PRIMARY CARE PROVIDER AND ADVISE THEM TO GET REPEAT PORTS FROM OUR FACILITY. IF YOU HAD ANY BRANDT WRAP/SPLINTS THAT WERE APPLIED HERE, PLEASE DO NOT REMOVE THEM UNTIL YOU SEE YOUR PRIMARY CARE OR SPECIALTY. TAKE LASIX DIRECTED UNTIL GONE STARTING TOMORROW. TAKE PREDNISONE WITH FOOD DIRECTED FOR THE NEXT SIX DAYS. ELEVATE YOUR LEGS MUCH POSSIBLE. AND SEE YOUR PRIMARY CARE DOCTOR FOR FOLLOW UP AND MANAGEMENT Referrals: VIKTOR HANKS MD (PCP) Time of Disposition: 13:24 I have reviewed the case, and I agree with, Diagnosis and Plan NURY CADENA NP Sep 24, 2024 11:56
[2024-09-24 12:10] LABS: BASOPHILS # (AUTO) 0.04 K/uL (0.00-0.20); BASOPHILS % (AUTO) 0.4 % (0.0-5.0); EOSINOPHILS # (AUTO) 0.22 K/uL (0.00-0.70); EOSINOPHILS % (AUTO) 2.4 % (0.0-8.0); HEMATOCRIT 30.7 % (36-48); IMMATURE GRANULOCYTE ABSOLUTE 0.02 K/uL (0-1); LYMPHOCYTES # (AUTO) 2.5 K/uL (1.0-4.8); LYMPHOCYTES % (AUTO) 27.6 % (21.0-51.0); MEAN CORPUSCULAR HEMOGLOBIN 24.9 pg (27.0-33.0); MEAN CORPUSCULAR HGB CONC 30.6 g/dL (32.0-36.0); MEAN CORPUSCULAR VOLUME 81.2 fL (79-99); MONOCYTES # (AUTO) 0.5 K/uL (0.1-1.0); MONOCYTES % (AUTO) 5.5 % (3.0-13.0); NEUTROPHILS # (AUTO) 5.8 K/uL (1.8-7.7); NEUTROPHILS % (AUTO) 63.9 % (40.0-77.0); PLATELET COUNT (AUTO) 520 K/uL (130-400); RED BLOOD CELL COUNT(AUTO) 3.78 MIL/uL (4.00-5.50); WHITE BLOOD COUNT (AUTO) 9.1 K/uL (4.8-10.8)
--- NOTE | 2024-09-24 12:11 | EKG ---
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
[2024-09-24 12:20] LABS: POTASSIUM 4.3 mmol/L (3.5-5.1)
[2024-09-24 12:38] LABS: B-TYPE NATRIURETIC PEPTIDE 120 pg/mL (0-100)
[2024-09-24] MEDS ORDERED: FURO40TA7 PO (13:26)
[2024-09-24 13:31] VITALS: BP 124/62; PULSE 68; RESP 16; TEMP 98.5; O2SAT 98
== END 2024-09-24 13:42 | disposition home or self-care (01) ==
LOC: EDH 11:47
DX: R60.0 Localized edema (principal); D64.9 Anemia, unspecified; M06.9 Rheumatoid arthritis, unspecified; E78.00 Pure hypercholesterolemia, unspecified; I10 Essential (primary) hypertension; Z79.52 Long term (current) use of systemic steroids; Z79.899 Other long term (current) drug therapy
CPT/HCPCS: 36415; 80048; 83880; 85025; 93005; 99284

== ENCOUNTER 2024-11-04 11:13 | Emergency (ER) | payer BC, OTHER ==
[~2024-11-04] VITALS: Ht 152.4 cm; Wt 58.5 kg
[~2024-11-04 11:13] MED LIST changes: +FURO40TA7 PO
--- NOTE | 2024-11-04 11:22 | ERN ---
ED Note History of Present Illness Stated Complaint: BLE SWELLING Chief Complaint: LOWER EXTREMITY EDEMA Time Seen by MD: 11:15 Dictation: PATIENT IS A 64-YEAR-OLD FEMALE COMING IN TODAY WITH EDEMA AND SWELLING TO HER BILATERAL LOWER EXTREMITIES WORSE ON THE LEFT FOR THE LAST SEVERAL MONTHS. SHE DENIES SHORTNESS A BREATH DENIES ANY CHRONIC KIDNEY DISEASE NO HISTORY OF CAD OR CONGESTIVE HEART FAILURE. SHE WAS SEEN HERE IN MID SEPTEMBER AND WAS TREATED FOR DEPENDENT EDEMA STATES SHE CALLED HER DOCTOR AND COULD NOT GET AN APPOIN TMENT UNTIL NOVEMBER. SHE HAS NO PAIN NO ERYTHEMA TO HER LOWER EXTREMITIES. Allergies: Coded Allergies: No Known Allergies (Unverified Allergy, Unknown, 12/14/20) Home Meds Active Scripts Prednisone (Prednisone) 20 Mg Tablet, 1 TAB PO AD for 6 Days, #14 TAB 0 Refills TAKE 1 TAB BY MOUTH THREE TIMES PER DAY X3 DAYS, THEN TAKE 1 TAB BY MOUTH TWICE A DAY X2 DAYS, THEN TAKE 1 TAB BY MOUTH ONCE A DAY X1 DAY. Prov:NURY CADENA NP 09/24/24 Furosemide (Lasix 40Mg Tab) 40 Mg Tablet, 1 TAB PO DAILY for 5 Days, #5 TAB 0 Refills Prov:NURY CADENA NP 09/24/24 Furosemide (Lasix 20Mg Tab) 20 Mg Tablet, 1 TAB PO DAILY for 30 Days, #30 TAB 0 Refills Prov:GERALD LEONE DO 08/26/24 Meloxicam (Meloxicam) 15 Mg Tablet, 15 MG PO DAILY PRN for PAIN for 30 Days, #30 TAB Prov:GERALD LEONE DO 08/26/24 Prednisone (Prednisone) 20 Mg Tablet, 1 TAB PO AD for 6 Days, #14 TAB 0 Refills TAKE 1 TAB BY MOUTH THREE TIMES PER DAY X3 DAYS, THEN TAKE 1 TAB BY MOUTH TWICE A DAY X2 DAYS, THEN TAKE 1 TAB BY MOUTH ONCE A DAY X1 DAY. Prov:NURY CADENA NP 07/16/24 Omeprazole (Omeprazole) 40 Mg Capsule.dr, 1 CAP PO DAILY for 30 Days, #30 CAP 0 Refills Prov:NURY CADENA NP 07/16/24 Prednisone (Prednisone) 20 Mg Tablet, 1 TAB PO BID for 5 Days, #10 TAB 0 Refills Prov:GERALD LEONE DO 06/07/24 Meloxicam (Meloxicam) 15 Mg Tablet, 15 MG PO DAILY PRN for PAIN for 10 Days, #10 TAB Prov:GERALD LEOEN DO 06/07/24 Cyclobenzaprine HCl (Cyclobenzaprine HCl) 7.5 Mg Tablet, 7.5 MG PO nightly for 7 Days, #7 TAB Prov:AMY HAWKINS MD 09/19/23 Naproxen (Naproxen) 375 Mg Tablet, 375 MG PO BID for 7 Days, #14 TAB Prov:AMY HAWKINS MD 09/19/23 Prednisone (Prednisone) 20 Mg Tablet, 1 TAB PO AD for 3 Days, #3 TAB 0 Refills Prov:MEREDITH BROWER MD 12/14/20 Past Medical History Past Medical History: Anemia, Arthritis, High Cholesterol, Hypertension Surgical History: Family History: Negative Social History: ETOH, Negative History: Not Applicable RN Note Reviewed/Agreed w/PFSH: Yes Review of System Dictation CONSTITUTIONAL: NEGATIVE EXCEPT FOR HPI HEAD/FACE: NEGATIVE EXCEPT FOR HPI EENT: NEGATIVE EXCEPT FOR HPI RESPIRATORY: NEGATIVE EXCEPT FOR HPI BILATERAL LOWER EXTREMITY EDEMA GREATER ON THE LEFT GASTROINTESTINAL/ABDOMINAL: NEGATIVE EXCEPT FOR HPI GENITOURINARY: NEGATIVE EXCEPT FOR HPI MUSCULOSKELETAL: NEGATIVE EXCEPT FOR HPI INTEGUMENTARY: NEGATIVE EXCEPT FOR HPI NEUROLOGICAL/PSYCH: NEGATIVE EXCEPT FOR HPI HEMATOLOGIC/LYMPHATIC: NEGATIVE EXCEPT FOR HPI ALL SYSTEMS NEGATIVE, EXCEPT NOTED ABOVE. 13 POINT REVIEW OF SYSTEMS ASSESSED AND ALL NEGATIVE EXCEPT FOR ABOVE. Initial Vital Sign VS Vital Signs Date Time Temp Pulse Resp B/P (MAP) Pulse Ox O2 Delivery O2 Flow Rate FiO2 11/04/24 11:14 98.1 76 16 152/69 96 Room Air 0 11/04/24 11:26 21 Physical Exam Dictation VITAL SIGNS REVIEWED GENERAL APPEARANCE: ALERT, ORIENTED X 3, NO ACUTE DISTRESS, WELL DEVELOPED, NOURISHED. HEAD AND FACE: NON-TRAUMATIC. EYES: PERRL, PINK CONJUNCTIVAS, EYELID NO TRAUMA, ANTERIOR CHAMBER WITH ARCUS SENILIS. EARS: PINNAS INTACT AND NO SIGNS OF TRAUMA OR ERYTHEMA EAR CANALS CLEAR AND NO DISCHARGE TM NO ERYTHEMA NOSE: NO DISCHARGE, NO BLEEDING. OROPHARYNX: MOUTH NORMAL, TONGUE PINK, PHARYNX CLEAR,NO ERYTHEMA, TONSILS NO EXUDATES, NO ABSCESSES NOTED, MUCOUS MEMBRANE MOIST NECK: SUPPLE, NON-TENDER, NO THYROMEGALY, NO MASSES, NO JVD, NO BRUITS BREAST:DEFERRED CHEST:NO TENDERNESS, NO CREPITUS, NO PARADOXICAL MOVEMENT, NO RETRACTIONS LUNGS:CLEAR, WELL-VENTILATED, SYMMETRIC, NO RALES, NO WHEEZING, NO RHONCHI, NO STRIDOR, GOOD BREATH SOUNDS BILATERALLY HEART: REGULAR RATE, REGULAR RHYTHM, NO MURMUR, NO GALLOPS VASCULAR: 2+ PERIPHERAL EDEMA BILATERAL LOWER EXTREMITIES, ABDOMEN: SOFT, POSITIVE BOWEL SOUNDS, NONDISTENDED, NO GUARDING, NONTENDER, NO REBOUND, NO MASSES NO HEPATOMEGALY, NO SPLENOMEGALY, NO WIGGINS'S SIGN, NO HERNIAS. RECTAL: DEFERRED GENITAL: DEFERRED NEUROLOGICAL: NORMAL SPEECH, MOTOR FUNCTION INTACT, SENSORY FUNCTION INTACT MUSCULOSKELETAL: NECK NONTENDER, FULL RANGE OF MOTION, BACK NONTENDER, FULL RANGE OF MOTION, EXTREMITIES: NONTENDER, FULL RANGE OF MOTION SKIN: COLOR PINK, DRY, NO TURGOR, NO RASH, NO LACERATIONS, NO ABRASIONS, NO CONTUSIONS. LYMPHATIC: DEFERRED Results (Laboratory/Radiology) Laboratory/Radiology Laboratory Tests Test 11/04/24 11:28 White Blood Count 8.0 K/uL (4.8-10.8) Red Blood Count 4.14 MIL/uL (4.00-5.50) Hemoglobin 10.4 g/dL (12.0-16.0) L Hematocrit 33.8 % (36-48) L Mean Corpuscular Volume 81.6 fL (79-99) Mean Corpuscular Hemoglobin 25.1 pg (27.0-33.0) L Mean Corpuscular Hemoglobin Concent 30.8 g/dL (32.0-36.0) L Red Cell Distribution Width 17.2 % (11.0-15.5) H Platelet Count 526 K/uL (130-400) H Mean Platelet Volume 8.9 fL (7.5-10.5) Immature Granulocyte % (Auto) 0.1 % (0-1) Neutrophils (%) (Auto) 56.9 % (40.0-77.0) Lymphocytes (%) (Auto) 34.8 % (21.0-51.0) Monocytes (%) (Auto) 6.3 % (3.0-13.0) Eosinophils (%) (Auto) 1.5 % (0.0-8.0) Basophils (%) (Auto) 0.4 % (0.0-5.0) Neutrophils # (Auto) 4.5 K/uL (1.8-7.7) Lymphocytes # (Auto) 2.8 K/uL (1.0-4.8) Monocytes # (Auto) 0.5 K/uL (0.1-1.0) Eosinophils # (Auto) 0.12 K/uL (0.00-0.70) Basophils # (Auto) 0.03 K/uL (0.00-0.20) Absolute Immature Granulocyte (auto 0.01 K/uL (0-1) Nucleated Red Blood Cells 0.0 % (0.0-0.19) Red Blood Cell Morphology See comments Sodium Level 140 mmol/L (136-145) Potassium Level 4.3 mmol/L (3.5-5.1) Chloride Level 105 mmol/L (101-111) Carbon Dioxide Level 26 mmol/L (21-32) Blood Urea Nitrogen 13 mg/dL (7-18) Creatinine 0.8 mg/dL (0.5-1.0) Glomerular Filtration Rate Calc 83 mL/min (>90) Random Glucose 103 mg/dL (70-105) Total Calcium 8.6 mg/dL (8.5-10.1) Magnesium Level 1.60 mg/dL (1.80-2.40) L Troponin I High Sensitivity 5 ng/L (4-50) B-Type Natriuretic Peptide 122 pg/mL (0-100) H Labs Reviewed?: Yes EKG Comment: EKG SINUS RHYTHM/HEART RATE 70/LEFT VENTRICULAR HYPERTROPHY NO ECTOPY ED Course ED Course Orders Procedure Category Date Status Time B-Type Natriuretic LAB 11/04/24 Complete Peptide 11:19 Cbc With Differential LAB 11/04/24 Complete 11:19 12 Lead Ekg Tracing- EKG 11/04/24 Logged Technical 11:19 Magnesium LAB 11/04/24 Complete 11:19 Troponin I High LAB 11/04/24 Complete Sensitivity 11:19 Basic Metabolic Panel LAB 11/04/24 Complete 11:19 Vital Signs Date Time Temp Pulse Resp B/P (MAP) Pulse Ox O2 Delivery O2 Flow Rate FiO2 11/04/24 11:26 71 16 133/61 100 Room Air* 0 21 11/04/24 11:14 98.1 76 16 152/69 96 Room Air 0 1315/DISCHARGED HOME WITH NEGATIVE WORKUP, MILDLY ELEVATED BNP. PATIENT WILL BE DIAGNOSED WITH DEPENDENT EDEMA AND HYPOMAGNESEMIA MAGNESIUM WE WILL BE PLACED AT HOME AND PATIENT WILL BE TOLD TO ELEVATE HER FEET AND SEE HER PRIMARY CARE DOCTOR FOR FOLLOW UP Medical Decision Making MDM MDM: DIFFERENTIAL DIAGNOSIS: CHF/ACUTE KIDNEY INJURY/DEPENDENT EDEMA/ELECTROLYTE IMBALANCE/DEHYDRATION RATIONALE: TESTS CONSIDERED AND ORDERED SECONDARY TO SHARED DECISION MAKING INCLUDE: EKG/LABS PREVIOUS OUTSIDE RECORDS REVIEWED: OLD ER VISITS. RISK OF COMPLICATION AND/OR MORBIDITY OR MORTALITY OF PATIENT MANAGEMENT: NONE MEDICATIONS-PER MEDICATION RECONCILIATION NEED FOR HOSPITALIZATION: PATIENT DOES NOT MEET CRITERIA FOR HOSPITALIZATION. NO NEED FOR EMERGENCY MAJOR/MINOR SURGERY: NO THERE ARE NO SOCIAL CONCERNS WITH THIS PATIENT. PRESCRIPTION DRUG MANAGEMENT MAGNESIUM CIT[place] PRESCRIPTIONS WILL INCLUDE SYMPTOMATIC CARE PATIENT'S PRIOR EXTERNAL MEDICAL RECORDS FROM OTHER ER VISITS WERE REVIEWED BY ME INDICATED. PRIOR TESTING AND RESULTS FROM PREVIOUS VISITS WERE REVIEWED. PRIOR TESTS WERE TAKEN INTO ACCOUNT WITH MEDICAL DECISION MAKING AND RESOURCE UTILIZATION, INDEPENDENT HISTORIAN/HISTORIANS WERE USED TO OBTAIN COMPLETE MEDICAL HISTORY. I INDEPENDENTLY INTERPRETED THE TEST THAT WERE PERFORMED, RESULTS WERE REVIEWED BY ME AND CONSIDERED FINDINGS ON RADIOLOGY IF ORDERED. MEDICAL MANAGEMENT AND EXAMINATION INTERPRETATION DISCUSSIONS WERE HAD BY ME WITH OTHER QUALIFIED HEALTHCARE PROFESSIONALS INDICATED FOR THE PATIENT'S CARE. DX & DISP Disposition: Discharge Departure Impression: Primary Impression: Dependent edema Additional Impressions: Hypomagnesemia, Elevated brain natriuretic peptide (BNP) level, Chronic anemia Condition: Stable Scripts Magnesium Oxide/Mag Aa Chelate (Magnesium 300 mg Capsule) 300 Mg Capsule 300 MG PO DAILY for 10 Days, #10 CAP 0 Refills Prov: NURY CADENA CONCERT OR LECTURE HALL MANAGER 11/04/24 Additional Instructions: FOLLOW-UP WITH PRIMARY CARE PROVIDER IN 1 TO 2 DAYS. TAKE MEDICATIONS DIRECTED HERE IN THE EMERGENCY ROOM. OKAY TO CONTINUE HOME MEDICATIONS UNLESS OTHERWISE DISCUSSED DURING YOUR VISIT IN THE EMERGENCY ROOM TODAY. RETURN TO YOUR NEAREST EMERGENCY ROOM IF SYMPTOMS WORSEN OR IF THERE IS NO IMPROVEMENT. CALL 911 IF YOU NEED IMMEDIATE ASSISTANCE. TAKE TYLENOL OR MOTRIN [id number] NEEDED AND IF NO CONTRAINDICATIONS ARE PRESENT. INCREASE ORAL HYDRATION. A WOUND CULTURE OR URINE CULTURE WAS ORDERED HERE IN THE EMERGENCY ROOM DEPARTMENT PLEASE FOLLOW-UP WITH PRIMARY CARE PROVIDER AND ADVISE THEM TO GET REPEAT PORTS FROM OUR FACILITY. IF YOU HAD ANY BRANDT WRAP/SPLINTS THAT WERE APPLIED HERE, PLEASE DO NOT REMOVE THEM UNTIL YOU SEE YOUR PRIMARY CARE OR SPECIALTY. ELEVATE YOUR FEET MUCH POSSIBLE. TAKE MAGNESIUM DIRECTED DAILY UNTIL GONE. FOLLOW UP WITH YOUR PRIMARY CARE DOCTOR ON TUESDAY OR TUESDAY FOR MANAGEME NT Referrals: VIKTOR HANKS MD (PCP) Time of Disposition: 13:12 I have reviewed the case, and I agree with, Diagnosis and Plan NURY CADENA CONCERT OR LECTURE HALL MANAGER Nov 04, 2024 11:22
[2024-11-04 11:43] LABS: IMMATURE GRANULOCYTE ABSOLUTE 0.01 K/uL (0-1); NUCLEATED RED BLOOD CELLS 0.0 % (0.0-0.19); PLATELET COUNT (AUTO) 526 K/uL (130-400); RED BLOOD CELL COUNT(AUTO) 4.14 MIL/uL (4.00-5.50); RED CELL DISTRIBUTION WIDTH 17.2 % (11.0-15.5); WHITE BLOOD COUNT (AUTO) 8.0 K/uL (4.8-10.8)
[2024-11-04 12:12] LABS: CREATININE 0.8 mg/dL (0.5-1.0); GLOMERULAR FILTR. RATE CALC 83.0 mL/min (>90); GLUCOSE,RANDOM 103.0 mg/dL (70-105); SODIUM SERUM 140.0 mmol/L (136-145); UREA NITROGEN, BLOOD 13.0 mg/dL (7-18)
[2024-11-04] MEDS ORDERED: MAGN300C PO (13:12)
[2024-11-04 13:25] VITALS: BP 127/66; PULSE 76; RESP 18; TEMP 98.1; O2SAT 95
--- NOTE | 2024-11-04 14:37 | EKG ---
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
== END 2024-11-04 13:26 | disposition home or self-care (01) ==
LOC: EDH 11:13
DX: R60.0 Localized edema (principal); E83.42 Hypomagnesemia; D64.9 Anemia, unspecified; R79.89 Other specified abnormal findings of blood chemistry; E78.00 Pure hypercholesterolemia, unspecified; I10 Essential (primary) hypertension; M19.90 Unspecified osteoarthritis, unspecified site; Z79.52 Long term (current) use of systemic steroids; Z79.899 Other long term (current) drug therapy; Z98.890 Other specified postprocedural states
CPT/HCPCS: 36415; 80048; 83735; 83880; 84484; 85025; 93005; 99284